=== PATIENT | female | born 1950 | race Caucasian/White ===

== ENCOUNTER → 2016-10-19 | Day surgery (SDC) | payer MEDICARE, BC ==
[~2016-10-19] MED LIST: ACETAMINOPHEN PO; CALCIUM 600 +1 EAC5 PO; DESYREL50 MG PO; GLUCOSAMINE CH1 EAC1 PO; IRON45 MG PO; K-DUR20 ME1 PO; LASIX PO; LEVOXYL50 MC1 PO; MULTI-VITAMIN1 EAC1 PO; SULFURZYME PO; VITAMIN B12 INJECTIO; VOLTAREN75 MG PO
== END | disposition home or self-care (01) ==
LOC: CCSC 10:22
DX: G89.29 Other chronic pain (principal); M51.17 Intervertebral disc disorders with radiculopathy, lumbosacral region; M47.27 Other spondylosis with radiculopathy, lumbosacral region; M48.07 Spinal stenosis, lumbosacral region; Z88.5 Allergy status to narcotic agent; Z91.018 Allergy to other foods; Z90.49 Acquired absence of other specified parts of digestive tract; Z90.710 Acquired absence of both cervix and uterus
CPT/HCPCS: J1040; J2250; J3010

== ENCOUNTER → 2016-10-21 | Outpatient (CLI) | payer MEDICARE, BC ==
--- NOTE | ~2016-10-21 | OR ---
Unit #: [id number] #: [id number] Patient: CAMERON ADDISON [id number] [address] [place], [place] [address] [id number] O MR#: [id number] NAME: CAMERON ADDISON ROOM: Date of Procedure: 10/19/2016 Admission Date: 10/21/2016 Surgeon: Marco A Red M.D. : 1950 Attending Physician: Abilio Red Referring Physician: Abilio Red Primary Care Physician: Mae Joel M.D. SUR[facility] CENTER OPERATIVE NOTE PROCEDURE PERFORMED Lumbar epidural steroid injection under x-ray guided needle placement with provider administered conscious sedation. PREOPERATIVE DIAGNOSES 1. Acute lumbar radiculitis. 2. Spinal stenosis, lumbosacral spine. 3. Degenerative joint disease, lumbosacral spine. 4. Degenerative disk disease, lumbosacral spine. 5. Facet arthralgia, lumbosacral spine. INDICATION FOR PROCEDURE The patient presents today with the years long history of chronic lumbar radicular and lumbar facet arthralgia pain. She has been variously treated with intermittent success over the years with conservative management, which included medications and physical therapy as well as epidural steroid injections. She presents today with a weeks to months long history of crescendo pattern radicular pain which has now gotten to the point that is interfering with her activities of daily living. After discussing risks and benefits of proceeding today with an L4-L5 epidural steroid injection, obtaining a CT scan in the interim between now and her followup visit on 11/07 as well as potential referral to [facility] for RFA, the patient agreed this would be the appropriate course of action. DESCRIPTION OF PROCEDURE She was then taken to the operating room, where she was prepped and draped in a sterile manner. Standard monitors were applied. She was sedated with 2 mg of IV Versed and 1 mL of IV fentanyl and lumbar epidural space accessed at the L4-L5 level using loss of resistance technique and x-ray guidance. Needle placement was confirmed with injection of 2 mL of Omnipaque. Approximately 80% to 90% of dye flow was in the inferior direction. Following successful needle placement confirmation at the L4-L5 level, the patient received an injectate containing 2 mL of normal saline, 2 mL of 0.25% bupivacaine, and 80 mg of methylprednisolone. She tolerated this procedure well. She was discharged home with followup instructions, which include return to this clinic on 11/07. At that point, she will most likely receive an initial L3-L4 placement with potential for a dual-needle based upon her results with the L3-L4 placement and the results of the pending CT scan. Dictated by... Marco A Red M.D. Unit #: [id number] #: [id number] Patient: CAMERON ADDISON AGATA/carrie TD: 10/19/2016 13:28 JOB #: [id number] CC: Andrew Gasca M.D. SURGERY CENTER OPERATIVE NOTE Page 1 of 1 X Abilio Red MD X PROCEDURE OPERATIVE NOTE
--- NOTE | ~2016-10-21 | CT98 ---
[facility] A Service of [facility] RADIOLOGY TEXT RESULTS PATIENT: CAMERON ADDISON LOCATION: [facility] : 48 UNIT #: [id number] AGE: [address]: Abilio Red MD SEX: F ORDER DR: [id number] [facility] [address]. [place], [place] [address] [id number] O MR#: [id number] Acc #: [id number] NAME: CAMERON ADDISON : 1950 SEX: F STUDY DATE/TIME: 10/21/2016 9:46 UNIT: [facility] ROOM: STUDY DESCRIPTION: CT Lumbar Spine Wo Cont Attending Physician: Marco A Red M.D. Referring Physician: Marco A Red M.D. Ordering Physician: Marco A Red M.D. Primary Care Physician: Mae Joel M.D. MEDICAL IMAGING REPORT This report is preliminary unless electronic signature is present REVISED REPORT SEE ADDENDUM EXAM Lumbar spine CT no contrast 10/21/2016 PROCEDURE Axial unenhanced lumbar spine CT with multiplanar reformats. This CT examination was performed with one or more of the following radiation dose reduction techniques: automatic exposure control, adjustment of mA and/or kV according to patient size, and iterative reconstruction. COMPARISON None. CLINICAL HISTORY Three week history of low back pain with no known injury. COMPARISON CT abdomen and pelvis images from 10/16/2014. FINDINGS There is a slight grade 1 4-5 anterolisthesis, but no pars defect. There is a slight scoliosis as well, but alignment is otherwise normal. There is no fracture or bone erosion or destruction. The paraspinous tissues are unremarkable. At T10-11, there is probably at least mild if not ylxd-wu-doomqalv canal stenosis due to mostly facet arthropathy and to a lesser degree disc and endplate change, with minimal canal narrowing due to degenerative change at 11-12. [facility] A Service [facility] RADIOLOGY TEXT RESULTS PATIENT: CAMERON ADDISON LOCATION: [facility] #: [id number] : 48 UNIT #: [id number] AGE: [address]: Abilio Red MD SEX: F ORDER DR: At L1-2, disc and endplate change and facet arthropathy cause afkk-xa-orlfabqt canal stenosis, and moderate right and minimal left foraminal stenosis. At L2-3, disc and endplate change and facet arthropathy cause jcgk-rj-movtscdh canal stenosis and pxcr-gt-sluccpzc right and moderate left foraminal stenosis. At L3-4, there is moderate to severe canal stenosis due to disc and endplate change and facet arthropathy and moderate or waaltyhi-rs-nvmxjd right and left foraminal stenosis. At L4-5, anterolisthesis, disc and endplate change and facet arthropathy cause moderate to severe right side predominant canal stenosis and moderate or jhftutrr-yz-knhhpx right and moderate left foraminal distortion and narrowing. At L5-S1, there is minimal degenerative canal stenosis and mild right and no left foraminal stenosis. IMPRESSION Multilevel degenerative lumbar canal and foraminal narrowing as well as thoracic canal narrowing at T10-11. See above for details. No acute appearing abnormality at any level. Dictated by... Rolo Santiago M.D. THIS IS AN ELECTRONICALLY VERIFIED REPORT Rolo Santiago M.D. at 10/25/2016 12:14 PM LI/teri TD: 10/21/2016 14:01 JOB #: [id number] ADDENDUM Comparison made to lumbar spine MRI of 07/04/2014. Alignment is stable since that exam. It is difficult to compare otherwise, but the canal stenosis suggested that T10-11 may be worsened since the MRI exam, consider evaluation of the thoracic spine. [facility] A Service of [facility] RADIOLOGY TEXT RESULTS PATIENT: CAMERON ADDISON LOCATION: [facility] #: [id number] : 48 UNIT #: [id number] AGE: [address]: Abilio Red MD SEX: F ORDER DR: Dictated by... Rolo Santiago M.D. THIS IS AN ELECTRONICALLY VERIFIED REPORT Rolo Santiago M.D. at 11/04/2016 2:22 PM TEV/perez TD: 10/21/2016 15:39 JOB #: [id number] CC: Jazmyn/riki Please Delete MEDICAL IMAGING REPORT Page 1 of 1 COPY
== END | disposition home or self-care (01) ==
LOC: CCAT 09:03
DX: M54.16 Radiculopathy, lumbar region (principal); M99.83 Other biomechanical lesions of lumbar region; M48.04 Spinal stenosis, thoracic region; M48.06 Spinal stenosis, lumbar region; M48.07 Spinal stenosis, lumbosacral region; M43.16 Spondylolisthesis, lumbar region; M47.894 Other spondylosis, thoracic region; M46.96 Unspecified inflammatory spondylopathy, lumbar region; M46.94 Unspecified inflammatory spondylopathy, thoracic region; M47.26 Other spondylosis with radiculopathy, lumbar region
CPT/HCPCS: 72131

== ENCOUNTER → 2016-11-07 | Day surgery (SDC) | payer MEDICARE, BC ==
--- NOTE | ~2016-11-07 | OR ---
Unit #: [id number] #: [id number] Patient: CAMERON ADDISON [id number] [address] [place], [place] [address] [id number] O MR#: [id number] NAME: CAMERON ADDISON ROOM: Date of Procedure: 11/07/2016 Admission Date: 11/07/2016 Surgeon: Marco A Red M.D. : 1950 Attending Physician: Marco A Red M.D. Primary Care Physician: Mae Joel M.D. SURGERY CENTER OPERATIVE NOTE PROCEDURE PERFORMED Lumbar epidural steroid injection under x-ray guided needle placement with provider administered conscious sedation. PREOPERATIVE DIAGNOSES 1. Acute lumbar radiculitis. 2. Spinal stenosis, lumbosacral spine. 3. Degenerative joint disease, lumbosacral spine. 4. Degenerative disk disease, lumbosacral spine. INDICATIONS FOR PROCEDURE The patient presents today status post one previous lumbar approach epidural steroid injection for an acute radiculitis, which had failed to respond to conservative therapy. She states she got excellent results with almost initial resolution of her radicular symptoms; however, over the course of the intervening time between her original visit and today, she has had some return of symptoms. She has also had an unmasking of what appears to be fairly significant facet arthralgia complaints. After discussing risks and benefits of proceeding today with an L3-L4 approach epidural steroid injection with the possibility of the second needle technique, the patient agreed this would be the appropriate course of action. She is also instructed to keep all referrals with [facility] for potential facet joint injections as well as radiofrequency ablation. She is also instructed to follow up here long-term on 02/15/2017. DESCRIPTION OF PROCEDURE Following these discussions, the patient was taken to the operating room, where she was prepped and draped in a sterile manner. Standard monitors were applied. She was sedated initially with 2 mg of IV Versed and required an additional 2 mg of IV Versed and 1 mL of IV fentanyl throughout the duration of procedure. Lumbar epidural space accessed at L3-L4 level using loss of resistance technique and x-ray guidance. Needle placement was confirmed with injection of 2 mL of Omnipaque. There was good superior and inferior flow at the L3-L4 level. Following successful needle placement confirmation which required an x-ray time of 7 seconds, the patient received an injectate containing 8 mL normal saline and 80 mg of methylprednisolone. She tolerated this procedure well. She was discharged home with followup instructions, which include return dates as described above. Dictated by... Marco A Red M.D. Unit #: [id number] #: [id number] Patient: CAMERON ADDISON AGATA/vitalyl TD: 11/08/2016 03:07 JOB #: [id number] CC: Andrew Gasca M.D. SUR[facility]ERY CENTER OPERATIVE NOTE Page 1 of 1 X Abilio Red MD X PROCEDURE OPERATIVE NOTE
== END | disposition home or self-care (01) ==
LOC: CCSC 12:09
DX: M51.17 Intervertebral disc disorders with radiculopathy, lumbosacral region (principal); M47.27 Other spondylosis with radiculopathy, lumbosacral region; M48.07 Spinal stenosis, lumbosacral region; E03.9 Hypothyroidism, unspecified; Z88.6 Allergy status to analgesic agent; Z91.018 Allergy to other foods; Z79.891 Long term (current) use of opiate analgesic; Z79.1 Long term (current) use of non-steroidal anti-inflammatories (NSAID); Z79.899 Other long term (current) drug therapy; Z90.710 Acquired absence of both cervix and uterus; Z90.49 Acquired absence of other specified parts of digestive tract; Z96.652 Presence of left artificial knee joint; Z98.890 Other specified postprocedural states
CPT/HCPCS: J1040; J2250; J3010